=== PATIENT | female | born 1990 | race Caucasian/White ===

== ENCOUNTER 2019-02-26 04:13 | Inpatient (IN) | payer OTHER ==
[~2019-02-26] VITALS: Ht 160 cm; Wt 81.0 kg
[2019-02-26] MEDS ORDERED: OXYTOCIN 30 UNITS IN 0.9% NaCl 500ML IV BAG (J2590) As Ordered ONE (04:18)
[2019-02-26 04:20] VITALS: BP 134/79
[2019-02-26 04:39] LABS: HEMATOCRIT 36.2 % (36.0-47.0); MEAN CORPUSCULAR HEMOGLOBIN 26.5 pg (27.0-33.0); MEAN CORPUSCULAR HGB CONC 33.1 g/dl (32.0-36.5); MEAN CORPUSCULAR VOLUME 80.1 fl (80.0-96.0); PLATELET COUNT, AUTOMATED 147 10^3/uL (150-450); RED BLOOD COUNT 4.52 10^6/uL (4.00-5.40); WHITE BLOOD COUNT 14.6 10^3/uL (4.0-10.0)
[2019-02-26] MEDS ORDERED: OXYTOCIN DRIP 30 UNITS in APPROPRIATE DILUENT 1 EA IV SCH (05:05)
[2019-02-26 05:08] LABS: CORD GAS ABE A -1.7; CORD GAS ABE V -2.5; CORD GAS HCO3 A 23.1 MEQ/L; CORD GAS HCO3 V 20.8 MEQ/L; CORD GAS O2 SAT A 29.7 %; CORD GAS O2 SAT V 50.5 %; CORD GAS PCO2 A 39.4 mmHg; CORD GAS PCO2 V 32.5 mmHg; CORD GAS PH A 7.386 UNITS; CORD GAS PH V 7.424 UNITS; CORD GAS PO2 A 13.7 mmHg; CORD GAS PO2 V 19.6 mmHg; CORD GAS SBC A 21.4 MEQ/L; CORD GAS SBC V 21.2 MEQ/L; CORD GAS TCO2 A 24.3 MEQ/L; CORD GAS TCO2 V 21.8 MEQ/L
[2019-02-26 05:10] VITALS: BP 124/60
[2019-02-26] MEDS ORDERED: DOCUSATE SODIUM 100 MG CAP PO PRN (05:15)
[2019-02-26] MEDS ORDERED: METHYLERGONOVINE MALEATE 0.2 MG TAB PO PRN (05:15)
[2019-02-26] MEDS ORDERED: DIBUCAINE 1% OINTMENT 30GM TOP PRN (05:15)
[2019-02-26] MEDS ORDERED: MEASLES,MUMPS,RUBELLA VACCINE INJ (MMR-II) (90707) SC SCH (05:15)
[2019-02-26] MEDS ORDERED: RHOGAM 300 MCG (1500 IU) INJ (J2790) IM SCH (05:15)
[2019-02-26] MEDS ORDERED: IBUPROFEN 600 MG TAB PO PRN (05:15)
[2019-02-26] MEDS ORDERED: ACETAMINOPHEN TAB 650MG DOSE (2X325MG) PO PRN (05:15)
[2019-02-26 05:25] VITALS: BP 125/62
[2019-02-26] MEDS ORDERED: LIDOCAINE 1% MDV 20ML VIAL SC ONE (05:30)
[2019-02-26] MEDS: ACETAMINOPHEN 500 MG TAB PO PRN ×2 (05:37→12:06)
[2019-02-26] MEDS: IBUPROFEN 800 MG TAB PO PRN ×2 (05:37→17:59)
[2019-02-26 05:40] VITALS: BP 125/65
[2019-02-26 07:04] VITALS: BP 128/66
[2019-02-26] MEDS: PRENATAL VITAMINS CHEWABLE TABLET PO SCH (07:59)
--- NOTE | 2019-02-26 17:30 | HPE ---
DATE OF ADMISSION: 02/26/2019 Clementine is a 29-year-old female 3, para 1-0-1-1 with an estimated date of confinement (EDC) of 03/01/2019, estimated gestational age (EGA) 39 and 4/7 weeks gestation who presented to labor and delivery with complaint of contraction and feeling pelvic pressure. Upon evaluation in labor and delivery, she was found to have be an anterior lip, grossly ruptured. At this point, the decision was made for admission. Her record reviewed which was essentially unremarkable. LABORATORY DATA: Blood type is A negative, rubella immune, hepatitis negative, HIV negative, GC and chlamydia negative. One-hour sugar testing was within normal limits. Her GBS is negative. PAST MEDICAL HISTORY: Denies. PAST SURGICAL HISTORY: Denies. SOCIAL HISTORY: She is . Denies any alcohol, drug or cigarette smoking. REVIEW OF SYSTEMS: Unremarkable. MEDICATIONS: vitamins. ALLERGIES: No known drug allergies. PHYSICAL EXAMINATION: Normal-appearing, obese female in no acute distress. ABDOMEN: Soft, nontender, nondistended, gravid. EXTREMITIES: No clubbing, cyanosis or edema. VAGINAL EXAMINATION: Gross rupture of membrane, anterior lip, fetus at +1 station, category 1 tracing with contractions every 3-4 minutes. ASSESSMENT: Intrauterine at 39-4/7 weeks gestation in active labor, grossly ruptured. PLAN: Admit to labor and delivery. Routine laboratories sent. Awaiting delivery.
[2019-02-26 18:00] VITALS: BP 119/61
--- NOTE | 2019-02-26 18:30 | DN ---
DATE: 02/26/2019 Clementine is a 29-year-old female 3, para 1-0-1-1 who was admitted at 39 and 4/7 weeks gestation in active labor with gross rupture of membranes. Within 20 minutes of being in labor and delivery, she pushed and delivered a live female in left occiput anterior position. scores 7 and 9. weight 9 pounds, 1 ounce. Placenta delivered spontaneously intact, three-vessel cord. First-degree midline perineal laceration noted which was repaired using 2-0 chromic. Estimated blood loss 300 mL. Both mother and baby in stable condition.
[2019-02-27 05:28] VITALS: BP 126/64
[2019-02-27] MEDS: PRENATAL VITAMINS CHEWABLE TABLET PO SCH (08:14)
[2019-02-27] MEDS: IBUPROFEN 800 MG TAB PO PRN (08:14)
[2019-02-27] MEDS ORDERED: COLA100C5 PO (10:08)
[2019-02-27] MEDS ORDERED: IBUP80TA PO (10:08)
[2019-02-27] MEDS ORDERED: ACET-683 PO (10:08)
[2019-02-27] MEDS ORDERED: DIBU10OI TOP (10:08)
--- NOTE | 2019-02-28 17:54 | DSES ---
DATE OF ADMISSION: 02/26/2019 DATE OF DISCHARGE: 02/27/2019 This is a 29-year-old 3, now para 2, admitted at 39 and 4 weeks of gestation with a history of contractions, spontaneous rupture of membranes. Was found to be almost fully dilated on admission. Twenty minutes later had a spontaneous vaginal delivery of a live- infant, weight of 9 pounds 0 ounces, scores of 7 and 9 at one and five minutes, respectively. Arterial pH 7.38, base excess -1.7, venous pH 7.42, base excess -2.5. She was GBS negative. Had a first-degree midline tear, which was oversewn in the usual fashion. On her second day, we discussed phlebitis, cystitis, mastitis, metritis, and cellulitis, diet, exercise, pain management, and perineal, breast, and wound care. Rest of the examination unremarkable. Normocephalic, atraumatic. Neck: Full range of motions. Pupils equal and reactive to light. Distal pulses symmetric. No evidence of deep vein thrombosis (DVT), pulmonary embolism (PE), or superficial phlebitis. Chest is clear to bilaterally bases. No wheezes or rhonchi. Abdomen: Soft. Uterus 2 below. Lochia is moderate. Four-quadrant bowel sounds are noted. Perineum is intact and healing. No rashes, lesions, or pruritus. No arthralgia, myalgia. No complaint joint pain. No complaint of cough, wheezes, shortness of breath, or dyspnea on exertion. She has no nausea, vomiting, diarrhea, or constipation. Her admitting hemoglobin was 12.0, hematocrit 36.2, and platelets were 147. Her discharge vital signs: Her blood pressure was 126/64, respirations 18, pulse 73, temperature 98.3. She has an appointment 6 weeks at [facility], at which time control will be discussed. Medications were dispensed at discharge.
== END 2019-02-27 11:12 | disposition home or self-care (01) | DRG 807 ==
LOC: M LDO 04:13 → M LDI 04:16 → M OBS 06:54
PROVIDERS: ADMIT Obstetrics & Gynecology; ATTEND Obstetrics & Gynecology
PROC: 10E0XZZ Delivery of Products of Conception, External Approach (ICD-10-PCS; principal; 2019-02-26)
PROC: 0HQ9XZZ Repair Perineum Skin, External Approach (ICD-10-PCS; 2019-02-26)
DX: O70.0 First degree perineal laceration during delivery (principal); Z37.0 Single live birth; Z3A.39 39 weeks gestation of pregnancy